=== PATIENT | male | born 1975 | race Two or more races ===

== ENCOUNTER 2025-01-03 08:00 | Day surgery (SDC) | payer OTHER ==
[2025-01-03] MEDS ORDERED: DIPHENHYDRAMINE HCL 50 MG/ML VIAL 1ML IV ONE (11:30)
[2025-01-03] MEDS ORDERED: fentaNYL CITRATE 50 MCG/ML AMPUL IV PUSH ONE (11:30)
[2025-01-03] MEDS ORDERED: MIDAZOLAM HCL 2 MG/2 ML VIAL IV ONE (11:30)
== END 2025-01-03 13:15 | disposition home or self-care (01) ==
LOC: AMB-ENDOS 08:00
PROVIDERS: ATTEND Colon & Rectal Surgery
DX: K63.5 Polyp of colon (principal); K62.5 Hemorrhage of anus and rectum; K57.30 Diverticulosis of large intestine without perforation or abscess without bleeding

== ENCOUNTER 2025-02-21 09:00 | Day surgery (SDC) | payer OTHER ==
[2025-02-13 10:28] VITALS: BP 127/83
[2025-02-13 11:30] LABS: BASO % 0.7 % (0.1-1.2); EOS # 0.06 (0.04-0.54); EOS % 1.3 % (0.7-7.0); LYMPH # 1.12 (1.18-3.74); LYMPH % 24.9 % (19.3-53.1); MEAN PLATELET VOLUME 10.30 fl (9.4-12.4); MONO # 0.36 (0.24-0.82); MONO % 8.0 % (4.7-12.5); NEUT # 2.91 (1.56-6.13); NEUT % 64.7 % (34.0-71.1); RED CELL DISTRIBUTION WIDTH 12.0 % (11.6-14.4)
[2025-02-13 11:33] LABS: URINE APPEARANCE Clear; URINE BILIRRUBIN Negative (NEGATIVE); URINE BLOOD Trace; URINE COLOR Yellow; URINE GLUCOSE Negative (NEGATIVE); URINE KETONE Trace (NEGATIVE); URINE LEUKOCYTE Negative; URINE NITRATE Negative; URINE PROTEIN Negative (NEGATIVE); URINE UROBILINOGEN 0.2 E.U./dl
[2025-02-13 11:38] LABS: URINE RBC 12.3 uL (0.0-20.8); URINE WBC 1.8 uL (0.0-23.2)
[2025-02-13 12:02] LABS: INR 0.99
[2025-02-13 12:04] LABS: ALT/SGPT 21.0 U/L (12-78); AST/SGOT 12.0 U/L (15-37); BILIRUBIN TOTAL 0.51 mg/dL (0.3-1.2); BUN CREA RATIO 10.0 (7.0-25.0); CREATININE SERUM 0.89 mg/dL (0.70-1.30); GFR 90.85; GLOBULINA 3.7 G/DL (2.4-3.5); GLUCOSE FASTING 93.0 mg/dL (65-100); OSMOLALITY SERUM 283.0 MOSM/KG (275-295)
[2025-02-13 12:12] LABS: URINE BACTERIA 2.3 uL (0.0-1933); URINE CAST 0.14 uL (0.0-1.40); URINE EPITHELIAL CELLS 1.2 uL (0.0-38.8)
[~2025-02-21] VITALS: Ht 165.1 cm; Wt 71.7 kg
[~2025-02-21 09:00] MED LIST: VITAL-D RX TAB1 EACH PO
[2025-02-21] MEDS ORDERED: CIPROFLOXACIN IN 5 % DEXTROSE 400 MG/200 ML PIGGYBAG IV ONE (11:23)
[2025-02-21] MEDS ORDERED: METRONIDAZOLE/SODIUM CHLORIDE 500 MG/100 ML PIGGYBACK IV ONE (11:23)
[2025-02-21] MEDS ORDERED: BUPIVACAINE HCL/MPF 0.5% 30ML VIAL ONE (12:42)
[2025-02-21] MEDS ORDERED: DIBUCAINE 30 GM TUBE ONE (12:42)
[2025-02-21] MEDS ORDERED: POVIDONE-IODINE 118 ML BOTT TOP ONE (12:42)
[2025-02-21] MEDS ORDERED: LIDOCAINE HCL 1%/EPINEPHRINE 20ML VIAL IJ ONE (12:42)
[2025-02-21] MEDS ORDERED: SURGIFLO APPLICATOR 1 EACH APPL TOP ONE (12:43)
[2025-02-21] MEDS ORDERED: HYDROGEN PEROXIDE 473 ML BOTTLE TOP ONE (13:11)
== END 2025-02-21 19:50 | disposition home or self-care (01) ==
LOC: CIR.AMB 09:00
PROVIDERS: ATTEND Colon & Rectal Surgery
DX: K60.313 Anal fistula, simple, recurrent (principal); A63.0 Anogenital (venereal) warts